=== PATIENT | female | born 1980 | race Caucasian/White ===

== ENCOUNTER 2017-10-14 05:40 | Inpatient (IN) | payer OTHER ==
[2017-10-14] MEDS ORDERED: METHYLERGONOVINE 0.2 MG INJ IM ×2 (06:00→13:00)
[2017-10-14] MEDS ORDERED: CARBOPROST 250 MCG INJ IM ×2 (06:00→13:00)
[2017-10-14] MEDS ORDERED: MISOPROSTOL 200 MCG TAB PR ×2 (06:00→13:00)
[2017-10-14] MEDS ORDERED: OXYTOCIN 30 UNITS/LR 500 ML IV ×2 (06:00→13:00)
[2017-10-14 06:18] LABS: ADD MAN DIFF? NO
[2017-10-14 06:30] LABS: BASOPHILS % 0.4 % (0.0-2.0); EOSINOPHILS # 0.2 10^3/ul (0.0-0.5); HEMATOCRIT 32.4 % (37.0-47.0); HEMOGLOBIN 10.6 g/dl (12.0-16.0); LYMPHOCYTES # 1.8 10^3/ul (0.8-2.9); LYMPHOCYTES % 26.2 % (15.0-51.0); MEAN CORPUSCULAR HEMOGLOBIN 26.4 pg (29.0-33.0); MEAN CORPUSCULAR HGB CONC 32.7 g/dl (32.0-37.0); MEAN CORPUSCULAR VOLUME 80.8 fl (82.0-101.0); MEAN PLATELET VOLUME 10.4 fl (7.4-10.4); MONOCYTE # 0.5 10^3/ul (0.3-0.9); NEUTROPHIL # 4.2 10^3/ul (1.6-7.5); PLATELET COUNT 253 10^3/UL (140-415); RED BLOOD COUNT 4.01 10^6/ul (4.20-5.40); RED CELL DISTRIBUTION WIDTH 21.8 % (11.5-14.5)
[2017-10-14 06:30] LABS: WHITE BLOOD COUNT 6.7 10^3/ul (4.8-10.8)
[2017-10-14 06:50] LABS: INR 0.93; PROTIME 12.6 Sec (11.9-14.9)
[2017-10-14 06:51] LABS: PARTIAL THROMBOPLASTIN TIME 27.3 Sec (25.0-35.0)
[2017-10-14 07:28] LABS: HEPATITIS B SURFACE ANTIGEN NEGATIVE (NEGATIVE)
[2017-10-14] MEDS: LACTATED RINGER'S 1,000 ML IV ×4 (07:50→23:53)
[2017-10-14] MEDS ORDERED: morphine SULFATE/PF (10 MG/10 ML) INJ (08:10)
[2017-10-14] MEDS ORDERED: PHENYLephrine (100 MCG/ML) 5ML SYG ×3 (08:35→09:21)
[2017-10-14] MEDS ORDERED: ONDANSETRON 4 MG INJ (08:49)
[2017-10-14] MEDS ORDERED: NALOXONE (0.4 MG/ML) INJ IV (09:00)
[2017-10-14] MEDS ORDERED: DIPHENHYDRAMINE 50 MG INJ IV ×3 (09:00→13:00)
[2017-10-14] MEDS ORDERED: HYDROmorphONE (0.2 MG/ML) 10ML SYG IV ×2 (09:00)
[2017-10-14] MEDS ORDERED: FENTAnyl 50 MCG/ML VIAL IV ×2 (09:00)
[2017-10-14] MEDS ORDERED: HYDROmorphONE 0.5 MG/0.5 ML SYG IV ×2 (09:00)
[2017-10-14] MEDS ORDERED: METOCLOPRAMIDE 10 MG INJ IV (09:00)
[2017-10-14] MEDS ORDERED: KETOROLAC 30 MG INJ IV (09:00)
[2017-10-14] MEDS ORDERED: ONDANSETRON 4 MG INJ IV ×2 (09:00→13:00)
[2017-10-14] MEDS: OXYTOCIN 30 UNITS/LR 500 ML IV ×2 (09:57→12:44)
[2017-10-14] MEDS: CEFAZOLIN 2 GM/50 ML (PMX) 50 ML IV (09:58)
[2017-10-14] MEDS: KETOROLAC 30 MG INJ IV ×3 (10:17→23:51)
[2017-10-14] MEDS: ONDANSETRON 4 MG INJ IV (10:23)
[2017-10-14] MEDS ORDERED: LANOLIN 7 GM TUBE TOP (13:00)
[2017-10-14] MEDS ORDERED: ZOLPIDEM 5 MG TAB PO (13:00)
[2017-10-14] MEDS ORDERED: OXYCODONE/ACETAMINOPHEN (5/325) TAB PO (13:00)
[2017-10-14] MEDS ORDERED: OXYTOCIN 10 UNIT INJ IV (16:25)
[2017-10-14] MEDS ORDERED: OXYTOCIN 30 UNITS/LR 500 ML BAG IV (16:27)
[2017-10-14] MEDS ORDERED: INFLUENZA VIRUS VACCINE 0.5 ML (DISPENSING) IM* (20:00)
[2017-10-14] MEDS: SENNA/DOCUSATE NA (8.6MG/50MG) TAB PO (21:00)
[2017-10-14 22:34] LABS: RAPID PLASMA REAGIN NONREACTIVE (NR)
[2017-10-15] MEDS ORDERED: INFLUENZA VIRUS VACCINE 0.5 ML (DISPENSING) IM* (08:30)
[2017-10-15 08:39] LABS: ADD MAN DIFF? NO
[2017-10-15 08:48] LABS: BASOPHILS % 0.4 % (0.0-2.0); EOSINOPHILS # 0.1 10^3/ul (0.0-0.5); EOSINOPHILS % 1.1 % (0.0-7.0); HEMATOCRIT 28.4 % (37.0-47.0); HEMOGLOBIN 9.2 g/dl (12.0-16.0); LYMPHOCYTES # 1.1 10^3/ul (0.8-2.9); LYMPHOCYTES % 10.8 % (15.0-51.0); MEAN CORPUSCULAR HEMOGLOBIN 26.7 pg (29.0-33.0); MEAN CORPUSCULAR HGB CONC 32.4 g/dl (32.0-37.0); MEAN CORPUSCULAR VOLUME 82.6 fl (82.0-101.0); MEAN PLATELET VOLUME 10.6 fl (7.4-10.4); MONOCYTE # 0.5 10^3/ul (0.3-0.9); MONOCYTES % 5.3 % (0.0-11.0); NEUTROPHILS % 81.9 % (39.0-77.0); PLATELET COUNT 226 10^3/UL (140-415); RED BLOOD COUNT 3.44 10^6/ul (4.20-5.40); RED CELL DISTRIBUTION WIDTH 21.4 % (11.5-14.5)
[2017-10-15 08:48] LABS: WHITE BLOOD COUNT 9.8 10^3/ul (4.8-10.8)
[2017-10-15] MEDS: SENNA/DOCUSATE NA (8.6MG/50MG) TAB PO ×2 (09:09→09:13)
[2017-10-15] MEDS: OXYCODONE/ACETAMINOPHEN (5/325) TAB PO (10:00)
[2017-10-15] MEDS: IBUPROFEN 600 MG TAB PO ×3 (11:54→23:45)
[2017-10-15] MEDS: LACTATED RINGER'S 1,000 ML IV (12:53)
[2017-10-16] MEDS: IBUPROFEN 600 MG TAB PO ×4 (06:00→23:40)
[2017-10-16] MEDS: INFLUENZA VIRUS VACCINE 0.5 ML (DISPENSING) IM* (08:30)
[2017-10-16] MEDS: SENNA/DOCUSATE NA (8.6MG/50MG) TAB PO ×2 (08:45→21:30)
[2017-10-17] MEDS: IBUPROFEN 600 MG TAB PO ×2 (05:46→12:03)
[2017-10-17] MEDS: SENNA/DOCUSATE NA (8.6MG/50MG) TAB PO (08:33)
[2017-10-17] MEDS: DIPHTH/TET/ACEL PERTUSS (ADULT) 0.5 ML VIAL IM* (12:04)
== END 2017-10-17 12:55 | disposition home or self-care (01) | DRG 766 ==
LOC: L-D 05:40 → PP1 12:44
PROVIDERS: Obstetrics & Gynecology
PROC: 10D00Z1 Extraction of Products of Conception, Low, Open Approach (ICD-10-PCS; principal; 2017-10-14 07:30)
DX: O34.211 Maternal care for low transverse scar from previous cesarean delivery (principal); Z37.0 Single live birth; Z3A.39 39 weeks gestation of pregnancy
CPT/HCPCS: 85025; 85610; 85730; 86592; 86850; 86900; 86901; 87340; 90686; 90715; 94760; 99464